=== PATIENT | male | born 1990 | race Caucasian/White ===

== ENCOUNTER 2018-07-02 10:43 | Day surgery (SDC) | payer OTHER ==
[~2018-07-02] VITALS: Ht 180.3 cm; Wt 63.5 kg
[~2018-07-02 10:43] MED LIST: DEXAMETHASONE 4 MG/ML, 5ML ONE
[2018-07-02] MEDS ORDERED: LACTATED RINGERS 1,000 ML IV SCH (11:06)
[2018-07-02 11:07] VITALS: BP 115/75
[2018-07-02] MEDS ORDERED: no meds per pt (11:15)
[2018-07-02] MEDS ORDERED: FENTANYL PF 250 MCG/5ML ONE (12:20)
[2018-07-02] MEDS ORDERED: MIDAZOLAM 1 MG/ML, 2ML ONE (12:20)
[2018-07-02] MEDS ORDERED: ONDANSETRON 2MG/ML, 2ML ONE (12:51)
[2018-07-02] MEDS ORDERED: PROPOFOL 10 MG/ML, 20ML ONE (12:51)
[2018-07-02] MEDS ORDERED: SUCCINYLCHOLINE 20 MG/ML, 10ML ONE (12:51)
[2018-07-02] MEDS ORDERED: MEPERIDINE/PF 50 MG/ML ONE ×2 (13:08→13:45)
[2018-07-02] MEDS ORDERED: HYDROmorphone 1 MG/ML, 1ML IV PRN (13:30)
[2018-07-02] MEDS ORDERED: LORazepam 2 MG/ML, 1ML IVPush PRN (13:30)
[2018-07-02] MEDS ORDERED: PROMETHAZINE 25 MG/ML, 1ML IV PRN (13:30)
[2018-07-02] MEDS ORDERED: OXYcodone 5 MG/5 ML ORAL.SOL UDC PO PRN (13:30)
[2018-07-02] MEDS ORDERED: FENTANYL PF 100 MCG/2ML IV PRN (13:30)
[2018-07-02] MEDS ORDERED: ACETAMINOPHEN 325 MG TABLET PO PRN (13:30)
[2018-07-02] MEDS ORDERED: hydrALAzine 20 MG/ML, 1ML IV PRN (13:30)
[2018-07-02] MEDS ORDERED: MEPERIDINE/PF 25MG/0.5ML IVPush PRN (13:30)
[2018-07-02] MEDS ORDERED: LABETALOL 5MG/ML, 20ML IV PRN (13:30)
[2018-07-02] MEDS ORDERED: ALBUTEROL SULFATE 2.5 MG/3 ML NPPB PRN (13:30)
[2018-07-02] MEDS ORDERED: OXYcodone 5 MG/5 ML ORAL.SOL UDC ONE (13:45)
== END 2018-07-02 15:55 | disposition home or self-care (01) ==
LOC: OUT 10:43
PROVIDERS: ATTEND Otolaryngology Facial Plastic Surgery
DX: J35.01 Chronic tonsillitis (principal); G47.33 Obstructive sleep apnea (adult) (pediatric); J34.2 Deviated nasal septum; J34.3 Hypertrophy of nasal turbinates
CPT/HCPCS: 42821; 88304; J0330; J1100; J2175; J2250; J2405; J2704; J3010; J7120

== ENCOUNTER 2021-03-14 22:39 | Emergency (ER) | payer OTHER ==
[~2021-03-14] VITALS: Ht 182.9 cm; Wt 64.8 kg
[~2021-03-14 22:39] MED LIST changes: -DEXAMETHASONE 4 MG/ML, 5ML ONE; +no meds per pt
[2021-03-14 22:42] VITALS: BP 118/72
[2021-03-14] MEDS ORDERED: LIDOCAINE-MPF 1%, 5ML ONE (23:10)
== END 2021-03-14 23:33 ==
LOC: ED 22:45
DX: S63.283A Dislocation of proximal interphalangeal joint of left middle finger, initial encounter (principal); W21.02XA Struck by soccer ball, initial encounter; Y93.66 Activity, soccer; Y92.322 Soccer field as the place of occurrence of the external cause; Y99.8 Other external cause status
CPT/HCPCS: 26770; 99284